=== PATIENT | female | born 1935 | race Caucasian/White ===

== ENCOUNTER → 2016-12-16 | Outpatient (CLI) | payer MEDICARE, OTHER ==
[2016-12-16 10:01] LABS: INR 1.5 (0.7-1.3); Prothrombin Time 17.7 sec (9.0-12.0)
== END | disposition home or self-care (01) ==
LOC: LAB 09:38
PROVIDERS: ATTEND Internal Medicine Cardiovascular Disease
DX: R79.1 Abnormal coagulation profile (principal)
CPT/HCPCS: 85610

== ENCOUNTER → 2017-01-27 | Outpatient (CLI) | payer MEDICARE, OTHER ==
[2017-01-27 09:36] LABS: INR 4.7 (0.7-1.3); Prothrombin Time 56.3 sec (9.0-12.0)
== END | disposition home or self-care (01) ==
LOC: LAB 09:17
PROVIDERS: ATTEND Internal Medicine Cardiovascular Disease
DX: R79.1 Abnormal coagulation profile (principal)
CPT/HCPCS: 85610

== ENCOUNTER → 2017-02-09 | Outpatient (CLI) | payer MEDICARE, OTHER ==
[2017-02-09 10:02] LABS: INR 3.2 (0.7-1.3); Prothrombin Time 38.8 sec (9.0-12.0)
== END | disposition home or self-care (01) ==
LOC: LAB 09:47
PROVIDERS: ATTEND Internal Medicine Cardiovascular Disease
DX: R79.1 Abnormal coagulation profile (principal)
CPT/HCPCS: 85610

== ENCOUNTER → 2017-02-23 | Outpatient (CLI) | payer MEDICARE, OTHER ==
[2017-02-23 16:56] LABS: INR 2.3 (0.7-1.3); Prothrombin Time 27.7 sec (9.0-12.0)
== END | disposition home or self-care (01) ==
LOC: LAB 10:18
PROVIDERS: ATTEND Internal Medicine Cardiovascular Disease
DX: R79.1 Abnormal coagulation profile (principal)
CPT/HCPCS: 85610

== ENCOUNTER → 2017-03-23 | Outpatient (CLI) | payer MEDICARE, OTHER ==
[2017-03-23 10:16] LABS: INR 2.3 (0.7-1.3); Prothrombin Time 27.1 sec (9.0-12.0)
[2017-03-24 12:23] LABS: Urine Bilirubin Negative (Negative); Urine Blood Negative /uL (Negative); Urine Color Yellow (Yellow); Urine Glucose Normal (Normal); Urine Ketone Negative (Negative); Urine Nitrite Negative (Negative); Urine Urobilinogen Normal (Negative); Urine pH 5.5 (5.0-8.0)
== END | disposition home or self-care (01) ==
LOC: LAB 09:41
PROVIDERS: ATTEND Internal Medicine Cardiovascular Disease
DX: R79.1 Abnormal coagulation profile (principal); N39.0 Urinary tract infection, site not specified
CPT/HCPCS: 81003; 85610; 87086

== ENCOUNTER → 2017-05-12 | Outpatient (CLI) | payer MEDICARE, OTHER ==
[2017-05-12 10:57] LABS: INR 1.8 (0.7-1.3); Prothrombin Time 21.2 sec (9.0-12.0)
== END | disposition home or self-care (01) ==
LOC: LAB 10:06
PROVIDERS: ATTEND Internal Medicine Cardiovascular Disease
DX: R79.1 Abnormal coagulation profile (principal)
CPT/HCPCS: 85610

== ENCOUNTER → 2017-06-02 | Outpatient (CLI) | payer MEDICARE, OTHER ==
[2017-06-02 10:08] LABS: INR 1.6 (0.7-1.3); Prothrombin Time 18.6 sec (9.0-12.0)
== END | disposition home or self-care (01) ==
LOC: LAB 09:47
PROVIDERS: ATTEND Internal Medicine Cardiovascular Disease
DX: R79.1 Abnormal coagulation profile (principal)
CPT/HCPCS: 85610

== ENCOUNTER → 2017-06-28 | Outpatient (CLI) | payer MEDICARE, OTHER ==
[2017-06-28 10:47] LABS: INR 1.4 (0.7-1.3); Prothrombin Time 17.2 sec (9.0-12.0)
== END | disposition home or self-care (01) ==
LOC: LAB 10:14
PROVIDERS: ATTEND Internal Medicine Cardiovascular Disease
DX: R79.1 Abnormal coagulation profile (principal)
CPT/HCPCS: 85610

== ENCOUNTER → 2017-08-11 | Outpatient (CLI) | payer MEDICARE, OTHER ==
[2017-08-11 10:51] LABS: INR 2.6 (0.7-1.3); Prothrombin Time 30.7 sec (9.0-12.0)
== END | disposition home or self-care (01) ==
LOC: LAB 10:27
PROVIDERS: ATTEND Internal Medicine Cardiovascular Disease
DX: R79.1 Abnormal coagulation profile (principal)
CPT/HCPCS: 85610

== ENCOUNTER → 2017-09-08 | Outpatient (CLI) | payer MEDICARE, OTHER ==
[2017-09-08 11:01] LABS: INR 0.9 (0.7-1.3); Prothrombin Time 11.2 sec (9.0-12.0)
== END | disposition home or self-care (01) ==
LOC: LAB 10:36
PROVIDERS: ATTEND Internal Medicine Cardiovascular Disease
DX: R79.1 Abnormal coagulation profile (principal)
CPT/HCPCS: 85610

== ENCOUNTER → 2017-09-28 | Outpatient (CLI) | payer MEDICARE, OTHER | END | disposition home or self-care (01) | LOC: Rad HDHVI 13:53 | PROVIDERS: ATTEND Internal Medicine Cardiovascular Disease | DX: I08.0 Rheumatic disorders of both mitral and aortic valves (principal); I10 Essential (primary) hypertension | CPT/HCPCS: 93306 ==

== ENCOUNTER → 2017-10-17 | Outpatient (CLI) | payer MEDICARE, OTHER ==
[2017-10-17 13:19] LABS: % Iron Saturation 3.4 % (15-50)
[2017-10-17 13:26] LABS: Ferritin 8.4 ng/mL (10-322)
[2017-10-17 13:27] LABS: Folate (Folic Acid) 10.29 ng/mL (5.38-24)
== END | disposition home or self-care (01) ==
LOC: LAB 08:48
PROVIDERS: ATTEND Internal Medicine Cardiovascular Disease
DX: D52.9 Folate deficiency anemia, unspecified (principal); E61.1 Iron deficiency; D51.9 Vitamin B12 deficiency anemia, unspecified; R79.89 Other specified abnormal findings of blood chemistry; R79.1 Abnormal coagulation profile
CPT/HCPCS: 82607; 82728; 82746; 83540; 83550; 85610

== ENCOUNTER → 2017-11-16 | Outpatient (CLI) | payer MEDICARE, OTHER | END | disposition home or self-care (01) | LOC: LAB 08:38 | PROVIDERS: ATTEND Internal Medicine Cardiovascular Disease | DX: R79.1 Abnormal coagulation profile (principal) | CPT/HCPCS: 85610 ==

== ENCOUNTER → 2017-12-14 | Outpatient (CLI) | payer MEDICARE, OTHER | END | disposition home or self-care (01) | LOC: LAB 09:09 | PROVIDERS: ATTEND Internal Medicine Cardiovascular Disease | DX: R79.1 Abnormal coagulation profile (principal) | CPT/HCPCS: 85610 ==

== ENCOUNTER → 2017-12-15 | Outpatient (CLI) | payer MEDICARE, OTHER | END | disposition home or self-care (01) | LOC: Rad HDHVI 13:54 | PROVIDERS: ATTEND Internal Medicine Cardiovascular Disease | DX: I34.0 Nonrheumatic mitral (valve) insufficiency (principal) | CPT/HCPCS: 93306 ==

== ENCOUNTER → 2017-12-29 | Outpatient (CLI) | payer MEDICARE, OTHER ==
[~2017-12-29] VITALS: Ht 162.6 cm; Wt 59.0 kg
== END | disposition home or self-care (01) ==
LOC: Rad HDHVI 13:32
PROVIDERS: ATTEND Internal Medicine Cardiovascular Disease
DX: S69.90XA Unspecified injury of unspecified wrist, hand and finger(s), initial encounter (principal); I10 Essential (primary) hypertension; R06.02 Shortness of breath; X58.XXXA Exposure to other specified factors, initial encounter; Y93.89 Activity, other specified; Y92.89 Other specified places as the place of occurrence of the external cause; Y99.8 Other external cause status
CPT/HCPCS: 78472; 96374; A9505; 96375

== ENCOUNTER → 2018-04-05 | Outpatient (CLI) | payer MEDICARE, BC ==
[2018-04-05 12:07] LABS: Eosinophils # (auto) 0.5 uL; Eosinophils % (auto) 14.2 % (0.0-7.0); Hemoglobin 8.7 g/dL (12.2-16.2); Mean Corpuscular Hemoglobin 25.5 pg (28.0-32.0); Monocytes # (auto) 0.3 uL; White Blood Cell 3.5 10^3/uL (4.4-10.8)
[2018-04-05 12:10] LABS: Basophils # (auto) 0.1 uL; Basophils % (auto) 1.8 % (0.0-2.0); Hematocrit 27.9 % (36.0-46.0); Lymphocytes # (auto) 0.8 uL; Lymphocytes % (auto) 21.9 % (10.0-50.0); Mean Corpuscular Hgb Conc. 31.2 g/dL (32.0-36.0); Mean Corpuscular Volume 81.9 fL (80.0-100.0); Monocytes % (auto) 7.6 % (0.0-12.0); Neutrophils # (auto) 1.9 uL; Neutrophils % (auto) 54.5 % (37.0-80.0); Platelet Count (auto) 345 10^3/uL (140-450); Red Blood Cells 3.41 10^6/uL (4.0-5.20); Red Cell Distribution Width 19.1 % (11.8-14.3)
[2018-04-05 12:11] LABS: Urine Blood TRACE /uL (Negative); Urine Specific Gravity 1.009 (1.001-1.035)
[2018-04-05 12:29] LABS: Albumin 3.6 g/dL (3.4-5.0); BUN/Creatinine Ratio 22.9; Bilirubin, Total 0.3 mg/dL (0.2-1.0); Calcium 8.6 mg/dL (8.5-10.1); Potassium 4.6 mmol/L (3.5-5.1); Total Protein 6.1 g/dL (6.4-8.2)
[2018-04-05 12:30] LABS: Free T4 (Free Thyroxine) 1.35 ng/dL (0.89-1.76)
== END | disposition home or self-care (01) ==
LOC: LAB 08:32
PROVIDERS: ATTEND Internal Medicine Cardiovascular Disease
DX: Z00.01 Encounter for general adult medical examination with abnormal findings (principal); E03.9 Hypothyroidism, unspecified; E55.9 Vitamin D deficiency, unspecified; E11.9 Type 2 diabetes mellitus without complications; D51.9 Vitamin B12 deficiency anemia, unspecified; N39.0 Urinary tract infection, site not specified; I10 Essential (primary) hypertension; E78.00 Pure hypercholesterolemia, unspecified
CPT/HCPCS: 36415; 80053; 80061; 81003; 82306; 82607; 83036; 84439; 84443; 85025

== ENCOUNTER → 2018-07-24 | Outpatient (CLI) | payer MEDICARE, BC ==
[~2018-07-24] MED LIST: IOHEXOL 350 MG/ML 100ML IJ ONE
[2018-07-24 12:20] VITALS: BP 152/91
[2018-07-24 13:00] VITALS: BP 157/70
== END | disposition home or self-care (01) ==
LOC: Rad HDHVI 12:07
PROVIDERS: ATTEND Internal Medicine Cardiovascular Disease
DX: S22.089A Unspecified fracture of T11-T12 vertebra, initial encounter for closed fracture (principal); M51.26 Other intervertebral disc displacement, lumbar region; M48.061 Spinal stenosis, lumbar region without neurogenic claudication; K44.9 Diaphragmatic hernia without obstruction or gangrene; I70.0 Atherosclerosis of aorta; I51.7 Cardiomegaly; X58.XXXA Exposure to other specified factors, initial encounter; Y93.89 Activity, other specified; Y92.89 Other specified places as the place of occurrence of the external cause; Y99.8 Other external cause status
CPT/HCPCS: 71260; 72131; 82565; G0463; Q9967

== ENCOUNTER → 2018-08-22 | Outpatient (CLI) | payer MEDICARE, BC ==
[2018-08-22 12:25] LABS: Urine Blood Negative /uL (Negative); Urine Specific Gravity 1.015 (1.001-1.035)
== END | disposition home or self-care (01) ==
LOC: LAB 08:21
PROVIDERS: ATTEND Internal Medicine Cardiovascular Disease
DX: N39.0 Urinary tract infection, site not specified (principal)
CPT/HCPCS: 81003; 87086

== ENCOUNTER → 2018-08-24 | Outpatient (CLI) | payer MEDICARE, BC ==
[~2018-08-24] MED LIST changes: +CYANOCOBALAMIN (B-12) 1000 MCG/1 ML VIAL ONE; -IOHEXOL 350 MG/ML 100ML IJ ONE
[2018-08-24 12:30] VITALS: BP 143/51
[2018-08-24] MEDS: CYANOCOBALAMIN (B-12) 1000 MCG/1 ML VIAL IM ONE (12:50)
[2018-08-24 12:51] VITALS: BP 138/56
[2018-08-24 17:02] LABS: Basophils # (auto) 0 uL; Eosinophils # (auto) 0.4 uL; Monocytes # (auto) 0.3 uL; Neutrophils # (auto) 2.8 uL
[2018-08-24 17:03] LABS: Basophils % (auto) 1.1 % (0.0-2.0); Hematocrit 26.3 % (36.0-46.0); Hemoglobin 8.3 g/dL (12.2-16.2); Lymphocytes # (auto) 0.8 uL; Lymphocytes % (auto) 18.3 % (10.0-50.0); Mean Corpuscular Hemoglobin 26.7 pg (28.0-32.0); Mean Corpuscular Hgb Conc. 31.5 g/dL (32.0-36.0); Mean Corpuscular Volume 84.9 fL (80.0-100.0); Monocytes % (auto) 6.8 % (0.0-12.0); Neutrophils % (auto) 63.8 % (37.0-80.0); Nucleated Red Blood Cells % 0.3 %; Platelet Count (auto) 367 10^3/uL (140-450); Red Cell Distribution Width 16.2 % (11.8-14.3); White Blood Cell 4.3 10^3/uL (4.4-10.8)
[2018-08-24 17:06] LABS: Albumin 3.2 g/dL (3.4-5.0); BUN/Creatinine Ratio 21.8; Calcium 7.8 mg/dL (8.5-10.1); Potassium 4.6 mmol/L (3.5-5.1)
[2018-08-24 17:08] LABS: Bilirubin, Total 0.2 mg/dL (0.2-1.0); Total Protein 5.7 g/dL (6.4-8.2)
== END | disposition home or self-care (01) ==
LOC: CHF HDHVI 12:05
PROVIDERS: ATTEND Internal Medicine Cardiovascular Disease
DX: D51.9 Vitamin B12 deficiency anemia, unspecified (principal); E55.9 Vitamin D deficiency, unspecified; E03.9 Hypothyroidism, unspecified; I10 Essential (primary) hypertension; E11.9 Type 2 diabetes mellitus without complications; R53.81 Other malaise; R53.83 Other fatigue; R53.1 Weakness; I70.0 Atherosclerosis of aorta; E78.00 Pure hypercholesterolemia, unspecified; I48.91 Unspecified atrial fibrillation; Z95.0 Presence of cardiac pacemaker
CPT/HCPCS: 36415; 80053; 82306; 82607; 83036; 84443; 85025; 96372; G0463; J3420

== ENCOUNTER 2018-08-29 06:36 | Day surgery (SDC) | payer MEDICARE, BC ==
[2018-08-29 07:58] VITALS: BP 158/80
[2018-08-29 08:10] VITALS: BP 164/75
[2018-08-29 08:47] VITALS: BP 154/73
[2018-08-29 10:35] VITALS: BP 139/67
== END 2018-08-29 11:20 | disposition home or self-care (01) ==
LOC: CATH 06:36
PROVIDERS: ATTEND Internal Medicine Cardiovascular Disease
DX: D64.9 Anemia, unspecified (principal); I49.5 Sick sinus syndrome; I10 Essential (primary) hypertension; Z81.0 Family history of intellectual disabilities; Z88.2 Allergy status to sulfonamides; Z88.1 Allergy status to other antibiotic agents
CPT/HCPCS: 36430; 86850; 86900; 86901; 86920; J7040; P9016

== ENCOUNTER → 2018-09-04 | Outpatient (CLI) | payer MEDICARE, BC ==
[2018-09-05 12:12] LABS: Basophils # (auto) 0 uL; Eosinophils # (auto) 0.6 uL; Hemoglobin 9.9 g/dL (12.2-16.2); Monocytes # (auto) 0.5 uL; Nucleated Red Blood Cells % 0.1 %
[2018-09-05 12:16] LABS: Basophils % (auto) 0.5 % (0.0-2.0); Eosinophils % (auto) 13.5 % (0.0-7.0); Hematocrit 32.2 % (36.0-46.0); Mean Corpuscular Hemoglobin 26.3 pg (28.0-32.0); Mean Corpuscular Hgb Conc. 30.8 g/dL (32.0-36.0); Mean Corpuscular Volume 85.2 fL (80.0-100.0); Monocytes % (auto) 12.2 % (0.0-12.0); Neutrophils # (auto) 2.1 uL; Neutrophils % (auto) 50.8 % (37.0-80.0); Platelet Count (auto) 324 10^3/uL (140-450); Red Blood Cells 3.78 10^6/uL (4.0-5.20); Red Cell Distribution Width 16.6 % (11.8-14.3); White Blood Cell 4.2 10^3/uL (4.4-10.8)
== END | disposition home or self-care (01) ==
LOC: Rad HDHVI 16:08
PROVIDERS: ATTEND Internal Medicine Cardiovascular Disease
DX: K44.9 Diaphragmatic hernia without obstruction or gangrene (principal); M41.85 Other forms of scoliosis, thoracolumbar region; M43.8X5 Other specified deforming dorsopathies, thoracolumbar region; I70.8 Atherosclerosis of other arteries; D64.9 Anemia, unspecified
CPT/HCPCS: 36415; 74176; 85025

== ENCOUNTER → 2018-09-25 | Outpatient (CLI) | payer MEDICARE, BC ==
[2018-09-25 16:02] LABS: Basophils # (auto) 0 uL; Eosinophils # (auto) 0.2 uL; Hemoglobin 10.1 g/dL (12.2-16.2); Lymphocytes # (auto) 0.5 uL; Monocytes # (auto) 0.3 uL; White Blood Cell 4.1 10^3/uL (4.4-10.8)
[2018-09-25 16:06] LABS: Basophils % (auto) 0.7 % (0.0-2.0); Eosinophils % (auto) 6.1 % (0.0-7.0); Hematocrit 31.8 % (36.0-46.0); Lymphocytes % (auto) 11.6 % (10.0-50.0); Mean Corpuscular Hgb Conc. 31.6 g/dL (32.0-36.0); Mean Corpuscular Volume 85.3 fL (80.0-100.0); Monocytes % (auto) 7.6 % (0.0-12.0); Nucleated Red Blood Cells % 0.2 %; Platelet Count (auto) 238 10^3/uL (140-450); Red Blood Cells 3.73 10^6/uL (4.0-5.20); Red Cell Distribution Width 17.6 % (11.8-14.3)
[2018-09-25 16:09] LABS: BUN/Creatinine Ratio 25.5; Calcium 8.6 mg/dL (8.5-10.1); Potassium 4.3 mmol/L (3.5-5.1)
[2018-09-25 16:41] LABS: INR 1.28 (0.9-1.15); Partial Thromboplastin Time 32.5 sec (23.78-33.04); Prothrombin Time 13.5 sec (9.27-12.13)
== END | disposition home or self-care (01) ==
LOC: Rad HDHVI 11:56
PROVIDERS: ATTEND Internal Medicine Cardiovascular Disease
DX: I11.9 Hypertensive heart disease without heart failure (principal); R79.89 Other specified abnormal findings of blood chemistry; D64.9 Anemia, unspecified; R79.1 Abnormal coagulation profile; M40.295 Other kyphosis, thoracolumbar region; I70.0 Atherosclerosis of aorta; M85.80 Other specified disorders of bone density and structure, unspecified site
CPT/HCPCS: 36415; 71046; 80048; 82728; 85025; 85610; 85730

== ENCOUNTER 2018-10-03 23:56 | Inpatient (IN) | payer MEDICARE, BC ==
[~2018-10-03] VITALS: Ht 160 cm; Wt 55.0 kg
[2018-10-04] MEDS ORDERED: SODIUM CHLORIDE 0.9% 1,000 ML IVB ONE (01:22)
[2018-10-04 02:28] LABS: Urine Bacteria FEW /hpf (None Seen); Urine Blood Negative /uL (Negative); Urine Mucus FEW (None Seen); Urine Specific Gravity 1.016 (1.001-1.035); Urine WBC 4 /hpf (0 - 5)
[2018-10-04 02:33] LABS: Hemoglobin 9.2 g/dL (12.2-16.2); Lymphocytes # (auto) 0.7 uL
[2018-10-04 02:35] LABS: Alcohol, Urine < 3.0 mg/dL (0-5); Amphetamine Screen, Urine NEGATIVE (NEGATIVE); Barbiturate Scree,Urine NEGATIVE (NEGATIVE); Benzodiazephine Screen, Urine NEGATIVE (NEGATIVE); Cannabinoid Screen, Urine NEGATIVE (NEGATIVE); Cocaine Screen, Urine NEGATIVE (NEGATIVE); Opiate Scree,Urine NEGATIVE (NEGATIVE); Phencyclidine Screen, Urine NEGATIVE (NEGATIVE)
[2018-10-04 02:35] LABS: Basophils # (auto) 0.1 uL; Basophils % (auto) 1.1 % (0.0-2.0); Eosinophils # (auto) 0.5 uL; Eosinophils % (auto) 9.4 % (0.0-7.0); Hematocrit 29.3 % (36.0-46.0); Lymphocytes % (auto) 12.8 % (10.0-50.0); Mean Corpuscular Hemoglobin 26.3 pg (28.0-32.0); Mean Corpuscular Hgb Conc. 31.4 g/dL (32.0-36.0); Mean Corpuscular Volume 83.9 fL (80.0-100.0); Monocytes # (auto) 0.5 uL; Monocytes % (auto) 10.1 % (0.0-12.0); Neutrophils # (auto) 3.4 uL; Neutrophils % (auto) 66.6 % (37.0-80.0); Platelet Count (auto) 270 10^3/uL (140-450); Red Blood Cells 3.49 10^6/uL (4.0-5.20); Red Cell Distribution Width 16.6 % (11.8-14.3); White Blood Cell 5.1 10^3/uL (4.4-10.8)
[2018-10-04 02:42] LABS: Alanine Aminotransferase 12 U/L (13-56); Anion Gap 4 (5-15); Blood Urea Nitrogen 20 mg/dL (7-18); Calcium 8.2 mg/dL (8.5-10.1); Carbon Dioxide 26 mmol/L (21-32); Chloride 113 mmol/L (98-107); GFR African American 88 mL/min; GFR Non-African American 73 mL/min; Glucose 89 mg/dL (74-106); Magnesium 2.3 mg/dL (1.6-2.6); Potassium 4.5 mmol/L (3.5-5.1); Sodium 143 mmol/L (136-145)
[2018-10-04 02:43] LABS: INR 1.95 (0.9-1.15); Partial Thromboplastin Time 23.4 sec (23.78-33.04); Prothrombin Time 20.1 sec (9.27-12.13)
[2018-10-04] MEDS ORDERED: cefTRIAXone 1GM/50ML D5W 50 ML IV ONE (02:45)
[2018-10-04] MEDS ORDERED: SODIUM CHLORIDE 0.9% 1,000 ML IV ONE (02:45)
[2018-10-04 02:47] LABS: Alkaline Phosphatase 90 U/L (45-117); Aspartate Aminotransferase 10 U/L (15-37); Bilirubin, Total 0.1 mg/dL (0.2-1.0); Total Protein 5.7 g/dL (6.4-8.2)
[2018-10-04] MEDS ORDERED: ONDANSETRON HCL 4 MG/2 ML VIAL IV PRN (06:00)
[2018-10-04] MEDS ORDERED: IOHEXOL 350 MG/ML 100ML IJ ONE (06:22)
[2018-10-04] MEDS ORDERED: FUROSEMIDE 20 MG/2 ML VIAL IV ONE (07:15)
[2018-10-04] MEDS: cefTRIAXone 1GM/50ML D5W 50 ML IV SCH (09:12)
--- NOTE | 2018-10-04 09:53 | NUR ---
Telemetry admit from ER ADRIANA YOUNG admitted to Telemetry unit after SBAR received from hilda. Patient oriented to Meño Brice, primary RN, unit, room, bed, and unit policies regarding patient care and visiting hours. Patient now on continuous telemetry monitoring, tele box # [id number] and telemetry reading on arrival to unit is Paced. Patient weighed by bedscale and encouraged to call if they need something. All questions and concerns addressed, patient verbalized understanding.
[2018-10-04] MEDS ORDERED: AZITHROMYCIN 500MG/ 250ML 250 ML IV SCH (10:00)
[2018-10-04] MEDS ORDERED: ENOXAPARIN SOD 100 MG/1 ML SYRINGE SC SCH (10:00)
[2018-10-04 10:45] VITALS: BP 129/70
[2018-10-04 12:18] VITALS: BP 129/70
[2018-10-04 13:00] VITALS: BP 127/70
[2018-10-04 17:00] VITALS: BP 118/67
[2018-10-04] MEDS: FUROSEMIDE 20 MG/2 ML VIAL IV SCH (17:42)
[2018-10-04] MEDS: FERROUS SULFATE 325 MG TAB PO SCH (17:42)
[2018-10-04] MEDS: ACETAMINOPHEN 500 MG TAB PO PRN (17:44)
[2018-10-04] MEDS: RIVAROXABAN 15 MG TAB PO SCH (18:16)
--- NOTE | 2018-10-04 19:00 | NUR ---
ASSUMED PATIENT CARE- NOC SHIFT PATIENT IS ALERT AND ORIENTED X4, ANSWERS IN COMPLETE SENTENCES AND MAKES APPROPRIATE EYE CONTACT. PATIENT IS ON ROOM AIR, BREATHING EVENLY, NO SIGN OF SOB. PATIENT STATES THAT SHE FEELS WEAKNESS ALL OVER HER BODY AND THAT IT IS DIFFICULT FOR HER TO GET COMFORTABLE. PATIENT IS IN BED, BED IS LOCKED IN LOWEST POSITION. BED RAILS UP X2 AND HEAD OF BED IS UP 3O DEGREES FOR SAFETY PRECAUTIONS. BEDSIDE TABLE IS WITHIN REACH, CALL LIGHT WITHIN REACH. DISCUSSED POC WITH PATIENT AND INSTRUCTED PATIENT TO CALL PRN; PATIENT VERBALIZED UNDERSTANDING. WILL CONTINUE TO MONITOR Q1H AND PRN.
[2018-10-04 20:00] VITALS: BP 102/53
[2018-10-04 22:00] VITALS: BP 102/53
[2018-10-04] MEDS ORDERED: ENOXAPARIN SOD 60 MG/0.6 ML SYRINGE SC SCH (22:00)
[2018-10-05] MEDS: ACETAMINOPHEN 500 MG TAB PO PRN (04:27)
[2018-10-05 05:00] VITALS: BP 123/50
[2018-10-05] MEDS: FUROSEMIDE 20 MG/2 ML VIAL IV SCH ×2 (05:58→18:00)
[2018-10-05 05:59] VITALS: BP 123/60
--- NOTE | 2018-10-05 07:00 | NUR ---
Opening Shift Note Assumed care of patient, awake, alert, and oriented x4. No S/S of distress/SOB or pain. IV in left forearm 18 gauge asymptomatic, intact, patent, and saline locked. Bed locked and in lowest position and call light is within reach. Instructed on POC and to call for assist PRN, and patient verbalized understanding. Will continue to monitor for changes Q1hr and PRN.
[2018-10-05 07:01] LABS: Basophils # (auto) 0 uL; Basophils % (auto) 0.5 % (0.0-2.0); Eosinophils # (auto) 0.4 uL; Eosinophils % (auto) 9.6 % (0.0-7.0); Hematocrit 27.1 % (36.0-46.0); Hemoglobin 8.8 g/dL (12.2-16.2); Lymphocytes # (auto) 0.5 uL; Lymphocytes % (auto) 11.3 % (10.0-50.0); Mean Corpuscular Hemoglobin 27.1 pg (28.0-32.0); Mean Corpuscular Hgb Conc. 32.5 g/dL (32.0-36.0); Mean Corpuscular Volume 83.4 fL (80.0-100.0); Monocytes # (auto) 0.5 uL; Monocytes % (auto) 11.8 % (0.0-12.0); Neutrophils # (auto) 2.7 uL; Neutrophils % (auto) 66.8 % (37.0-80.0); Platelet Count (auto) 307 10^3/uL (140-450); Red Blood Cells 3.25 10^6/uL (4.0-5.20); Red Cell Distribution Width 16.6 % (11.8-14.3); White Blood Cell 4.1 10^3/uL (4.4-10.8)
[2018-10-05 07:29] LABS: Calcium 8.1 mg/dL (8.5-10.1); Potassium 3.7 mmol/L (3.5-5.1)
[2018-10-05 07:31] LABS: BUN/Creatinine Ratio 24.7
[2018-10-05] MEDS: FERROUS SULFATE 325 MG TAB PO SCH ×2 (08:34→18:38)
[2018-10-05] MEDS: RIVAROXABAN 15 MG TAB PO SCH ×2 (08:35→18:37)
[2018-10-05] MEDS: cefTRIAXone 1GM/50ML D5W 50 ML IV SCH (08:35)
[2018-10-05 08:37] VITALS: BP 109/59
[2018-10-05] MEDS: CLOPIDOGREL BISULFATE 75 MG TAB PO SCH (10:35)
--- NOTE | 2018-10-05 11:00 | NUR ---
IV removal IV DC'd with sterile technique, catheter fully intact. Pressure dressing applied to site. Patient tolerated procedure well.
--- NOTE | 2018-10-05 16:30 | NUR ---
DR. BARAHNOA AT BEDSIDE
[2018-10-05 16:58] VITALS: BP 102/66
--- NOTE | 2018-10-05 17:00 | NUR ---
IV insertion IV access obtained, via clean sterile technique by inserting 22 gauge catheter at RIGHT FOREARM after 1 attempt. IV secured properly. No trauma to site. Patient tolerated procedure well.
--- NOTE | 2018-10-05 19:05 | NUR ---
ASSUMED PATIENT CARE- NOC SHIFT PATIENT IS ALERT AND ORIENTED, ANSWERS IN COMPLETE SENTENCES AND MAKES APPROPRIATE EYE CONTACT. PATIENT IS IN BED, BED IS LOCKED IN LOWEST POSITION, BED RAILS UP X2, HEAD OF BED IS UP 30 DEGREES FOR SAFETY PRECAUTIONS. BEDSIDE TABLE WITHIN REACH, CALL LIGHT WITHIN REACH. DISCUSSED POC WITH PATIENT AND INSTRUCTED PATIENT TO CALL PRN; PATIENT VERBALIZED UNDERSTANDING. WILL CONTINUE TO MONITOR Q1H AND PRN.
[2018-10-05 20:05] VITALS: BP 115/63
[2018-10-05 21:52] VITALS: BP 115/63
[2018-10-06 05:03] VITALS: BP 87/41
[2018-10-06] MEDS: FUROSEMIDE 20 MG/2 ML VIAL IV SCH (06:00)
--- NOTE | 2018-10-06 06:06 | NUR ---
BP 87/[address] TAFOYA, AWAITING ORDERS 0600 10/06/18 LASIX ORDER NOT ADMINISTERED.
--- NOTE | 2018-10-06 07:00 | NUR ---
Opening Shift Note Assumed care of patient, awake and alert. No S/S of distress/SOB or pain. Instructed on POC and to call for assist PRN, will continue to monitor for changes Q1hr and PRN.
--- NOTE | 2018-10-06 07:00 | NUR ---
DR TAFOYA ORDERED TO [facility]
[2018-10-06] MEDS: FERROUS SULFATE 325 MG TAB PO SCH ×2 (08:13→18:13)
[2018-10-06] MEDS: RIVAROXABAN 15 MG TAB PO SCH ×2 (08:13→18:13)
[2018-10-06] MEDS: cefTRIAXone 1GM/50ML D5W 50 ML IV SCH (08:13)
[2018-10-06 08:28] VITALS: BP 120/52
[2018-10-06] MEDS: CLOPIDOGREL BISULFATE 75 MG TAB PO SCH (12:15)
[2018-10-06 13:00] VITALS: BP 106/67
--- NOTE | 2018-10-06 13:04 | NUR ---
SNF PLACEMENT DR. GODOY AT BEDSIDE DISCUSSING HOME HEALTH OPTION WITH PATIENT. PATIENT IS ALREADY RECEIVING HOME HEALTH WITH PT. BUT PATIENT IS UNABLE TO GET TO BATHROOM AND WOULD PREFER GOING TO A HALFWAY.
[2018-10-06 17:05] VITALS: BP 126/72
--- NOTE | 2018-10-06 17:33 | NUR ---
assessment Per consult patient wants to go to SNF will dc tomorrow 10/07/18. Patient agrees to SNF placement. MD order has been sent to [facility]. Per Catrina at [facility] patient will go to room 6A and Dr Leyva is the accepting MD. Call Catrina at [phone] for transportation once discharged. Addendum: 10/06/18 at 1735 by Leila Potts Amended: Links added.
[2018-10-06 20:00] VITALS: BP 98/56
[2018-10-06 22:00] VITALS: BP 98/56
[2018-10-07 05:00] VITALS: BP 119/54
--- NOTE | 2018-10-07 07:50 | NUR ---
total linen change done.
[2018-10-07 08:30] VITALS: BP 121/72
[2018-10-07] MEDS: cefTRIAXone 1GM/50ML D5W 50 ML IV SCH (08:58)
[2018-10-07] MEDS: FERROUS SULFATE 325 MG TAB PO SCH ×2 (08:58→18:14)
[2018-10-07] MEDS: RIVAROXABAN 15 MG TAB PO SCH ×2 (08:58→18:14)
[2018-10-07 09:00] VITALS: BP 121/72
--- NOTE | 2018-10-07 10:42 | NUR ---
md sherrie bender at bedside, clarified re: the order that was placed by md feng on transfer of service to his name since 10/05/18. Addendum: 10/07/18 at 1105 by Sukhwinder Lozano RN RN as per md bender he will inform md daniel resendiz that and let md feng know re: the bed availability at [facility]. informed md bender that as per patient she spoke with md feng yesterday and he will keep the patient through the weekend.
[2018-10-07 13:00] VITALS: BP 112/64
--- NOTE | 2018-10-07 15:45 | NUR ---
daughter at bedside, both daughter and patient verbaLIZING THAT THEY DON'T WANT THE PATIENT TO BE PLACE ON SNF AND PREFERRED HOME HEALTH SERVICES INSTEAD. WILL LET KNOW
[2018-10-07] MEDS: CLOPIDOGREL BISULFATE 75 MG TAB PO SCH (16:11)
[2018-10-07 16:58] VITALS: BP 116/65
--- NOTE | 2018-10-07 20:00 | NUR ---
OPENING NOTE RECEIVED REPORT FROM DAYSHIFT RN. ASSUMING ROLE OF CARE OF PATIENT AT THIS TIME. PATIENT SHOWING NO SIGN OF DISTRESS, SHORTNESS OF BREATH, AND PATIENT DENIES ANY PAIN AT THIS TIME. PATIENT EDUCATED ON PLAN OF CARE FOR THE NIGHT AND PATIENT VERBALIZED UNDERSTANDING. BED LOWERED, CALL LIGHT WITHIN REACH AND PATIENT WILL BE ROUNDED ON EVERY HOUR AND NEEDED.
[2018-10-07 22:00] VITALS: BP 99/51
[2018-10-08 05:33] VITALS: BP 115/53
[2018-10-08 08:30] VITALS: BP 124/61
[2018-10-08] MEDS: cefTRIAXone 1GM/50ML D5W 50 ML IV SCH (08:41)
[2018-10-08] MEDS: ACETAMINOPHEN 500 MG TAB PO PRN (08:42)
[2018-10-08] MEDS: RIVAROXABAN 15 MG TAB PO SCH ×2 (08:42→18:38)
[2018-10-08] MEDS: FERROUS SULFATE 325 MG TAB PO SCH ×2 (08:42→18:38)
--- NOTE | 2018-10-08 08:48 | NUR ---
PT WITH PATIENT AT THIS TIME, WILL MONITOR INCREASE IN ACTIVITY LEVEL.
[2018-10-08 09:00] VITALS: BP 124/61
[2018-10-08] MEDS: CLOPIDOGREL BISULFATE 75 MG TAB PO SCH (11:50)
--- NOTE | 2018-10-08 12:01 | NUR ---
Nutrition Assessment Notes please see attached link for complete assessment Est. Needs BW [id number]-[id number] (25-30 kcal/kgBW), 56-67gms pro (1.0-1.2 gms/kgBW). Will continue to monitor pertinent labs and reassess nutrient need prn Addendum: 10/08/18 at [address] Amended: Links added.
--- NOTE | 2018-10-08 16:06 | NUR ---
spoke with md feng, informed him that as per patient and family, they don't want to go to snf and preferred home health service for safety evaluation, physical therapy, v/s and medication management instead. as per md feng he did already place the patient on home health under [facility]. will call social service for the consult
--- NOTE | 2018-10-08 16:48 | NUR ---
PAGED MEDICAL WRITER SOCIAL SERVICE FOR THE CONSULT AND DC PLANNING FOR TOMORROW
--- NOTE | 2018-10-08 16:56 | NUR ---
MELVIN ENVIRONMENTAL COMPLIANCE OFFICER CALLED BACK AND INFORMED HER THAT THE PATIENT AND FAMILY DOES NOT WANT TO GO TO SNF AND MD TAFOYA IS AWARE AND THERE IS A NEW SOCIAL SERVICE CONSULT PLACED FOR HOME HEALTH AND DC PLANNING FOR TOMORROW. PER MELVIN SHE WILL TAKE CARE OF IT TOMORROW.
[2018-10-08 17:53] VITALS: BP 132/77
--- NOTE | 2018-10-08 18:07 | NUR ---
SPOKE WITH PATIENT AND DAUGHTER AND THE PATIENT DID CHANGE HER MIND, SHE WANTED TO GO TO [facility] IF SHE WILL BE DISCHARGE TOMORROW. WILL ENDORSE.
--- NOTE | 2018-10-08 19:57 | NUR ---
OPENING NOTE RECEIVED REPORT FROM DAYSHIFT RN. ASSUMING ROLE OF CARE OF PATIENT AT THIS TIME. PATIENT SHOWING NO SIGN OF DISTRESS, SHORTNESS OF BREATH AND PATIENT DENIES ANY PAIN AT THIS TIME. PATIENT EDUCATED ON PLAN OF CARE FOR THE NIGHT AND PATIENT VERBALIZE UNDERSTANDING. DISCUSSED WITH PATIENT PLANS FOR DISCHARGE TOMORROW AND PATIENT IS STATING UNCERTAINTY REGARDING DISCHARGE AND LOCATION. PATIENT STATES SHE WOULD LIKE TO SPEAK TO THE PICKLE PROCESSOR REGARDING HER CHOICES. PICKLE PROCESSOR MADE AWARE ON DAYSHIFT ON CHANGES TO LOCATIONS AND STATED WILL WORK ON IT TOMORROW. WILL ENDORSE TO DAYSHIFT AND WILL ATTEMPT TO CONTACT IN THE MORNING. BED LOWERED, CALL LIGHT WITHIN REACH, AND PATIENT WILL BE ROUNDED ON EVERY HOUR AND NEEDED.
[2018-10-08 22:00] VITALS: BP 90/45
[2018-10-09 04:52] VITALS: BP 112/58
[2018-10-09] MEDS: ACETAMINOPHEN 500 MG TAB PO PRN (05:24)
[2018-10-09] MEDS: RIVAROXABAN 15 MG TAB PO SCH ×2 (08:19→18:00)
[2018-10-09] MEDS: CLOPIDOGREL BISULFATE 75 MG TAB PO SCH (08:19)
[2018-10-09] MEDS: FERROUS SULFATE 325 MG TAB PO SCH ×2 (08:19→18:00)
[2018-10-09] MEDS: cefTRIAXone 1GM/50ML D5W 50 ML IV SCH (08:20)
[2018-10-09 08:50] VITALS: BP 109/56
[2018-10-09 13:00] VITALS: BP 111/64
--- NOTE | 2018-10-09 15:41 | NUR ---
re-assessment Patient is now discharged. Per Catrina at [facility] patient will still go to room 6A and Dr Leyva is the accepting. General transport will transport patient between 5pm and 530pm. Patient agrees to discharge plan to SNF. Whitley RUIZ has been notified. Addendum: 10/09/18 at 1543 by Leila GANDARA Amended: Links added.
[2018-10-09] MEDS ORDERED: POTA1TAB61 PO (16:32)
[2018-10-09] MEDS ORDERED: PARO7.5C2 PO (16:32)
[2018-10-09] MEDS ORDERED: CYA100I IM (16:32)
[2018-10-09] MEDS ORDERED: ACET-1156 PO (16:32)
[2018-10-09] MEDS ORDERED: FERR1TAB5 PO (16:32)
[2018-10-09] MEDS ORDERED: LEVO100T8 PO (16:32)
[2018-10-09] MEDS ORDERED: WARF2TAB55 PO (16:32)
[2018-10-09] MEDS ORDERED: LORA-622 PO (16:32)
[2018-10-09 16:43] VITALS: BP 111/64
[2018-10-09 17:11] VITALS: BP 121/69
--- NOTE | 2018-10-09 17:30 | NUR ---
Discharge instructions given as ordered. All questions and concerns addressed. Patient verbalized understanding. Medication reconciliation form completed and copy given to patient. Transport here for patient however, she is not finished reading discharge materials and will sign papers after she reading. Transport will return for her.
--- NOTE | 2018-10-09 19:30 | NUR ---
Transport arrived for the patient, via w/c with all personal belongings. All questions and concerns are addressed. Telemetry unit returned to ICU. No distress noted at time of departure.
== END 2018-10-09 19:30 | DRG 175 ==
LOC: EDBD 23:56 → ER 23:58 → TELE 10-04 05:47 → TELE-WESTW 10-04 10:12
PROVIDERS: ADMIT Nurse Practitioner Family; ATTEND Internal Medicine Cardiovascular Disease
DX: I26.99 Other pulmonary embolism without acute cor pulmonale (principal); G93.41 Metabolic encephalopathy; J18.1 Lobar pneumonia, unspecified organism; R64 Cachexia; E44.1 Mild protein-calorie malnutrition; J98.11 Atelectasis; N13.6 Pyonephrosis; G62.9 Polyneuropathy, unspecified; E03.9 Hypothyroidism, unspecified; I95.9 Hypotension, unspecified; I11.0 Hypertensive heart disease with heart failure; Z87.81 Personal history of (healed) traumatic fracture; Z95.0 Presence of cardiac pacemaker; I49.5 Sick sinus syndrome; Z68.21 Body mass index [BMI] 21.0-21.9, adult; D64.9 Anemia, unspecified; R62.7 Adult failure to thrive
CPT/HCPCS: 36415; 70450; 71045; 71275; 80048; 80053; 80307; 81001; 83605; 83735; 83880; 84443; 84484; 85025; 85379; 85610; 85730; 87040; 87086; 93005; 93970; 94761; 96361; 96365; 96372; 96375; 97110; 97116; 97163; 97530; G0378; J0696

== ENCOUNTER → 2019-01-26 | Outpatient (CLI) | payer MEDICARE, BC ==
[~2019-01-26] MED LIST changes: +ACET-1156 PO; +CYA100I IM; -CYANOCOBALAMIN (B-12) 1000 MCG/1 ML VIAL ONE; +FERR1TAB5 PO; +LEVO100T8 PO; +LORA-622 PO; +PARO7.5C2 PO; +POTA1TAB61 PO; +WARF2TAB55 PO
[2019-01-26 15:52] LABS: Urine Blood Negative /uL (Negative); Urine Specific Gravity 1.033 (1.001-1.035)
[2019-01-26 15:56] LABS: Basophils # (auto) 0 uL; Basophils % (auto) 0.5 % (0.0-2.0); Eosinophils # (auto) 0.2 uL; Eosinophils % (auto) 5.7 % (0.0-7.0); Hematocrit 30.7 % (36.0-46.0); Hemoglobin 9.8 g/dL (12.2-16.2); Lymphocytes # (auto) 0.8 uL; Lymphocytes % (auto) 18.5 % (10.0-50.0); Mean Corpuscular Hemoglobin 29.7 pg (28.0-32.0); Mean Corpuscular Hgb Conc. 31.8 g/dL (32.0-36.0); Mean Corpuscular Volume 93.4 fL (80.0-100.0); Monocytes # (auto) 0.4 uL; Monocytes % (auto) 9.1 % (0.0-12.0); Neutrophils # (auto) 2.7 uL; Neutrophils % (auto) 66.2 % (37.0-80.0); Nucleated Red Blood Cells % 0.1 %; Platelet Count (auto) 271 10^3/uL (140-450); Red Blood Cells 3.29 10^6/uL (4.0-5.20); Red Cell Distribution Width 14.7 % (11.8-14.3); White Blood Cell 4.1 10^3/uL (4.4-10.8)
[2019-01-26 16:04] LABS: Albumin 3.7 g/dL (3.4-5.0); Calcium 8.7 mg/dL (8.5-10.1); Potassium 4.7 mmol/L (3.5-5.1)
[2019-01-26 16:08] LABS: BUN/Creatinine Ratio 31.4; Bilirubin, Total 0.3 mg/dL (0.2-1.0)
== END | disposition home or self-care (01) ==
LOC: LAB 12:00
PROVIDERS: ATTEND Internal Medicine Cardiovascular Disease
DX: N39.0 Urinary tract infection, site not specified (principal); D64.9 Anemia, unspecified; I11.0 Hypertensive heart disease with heart failure; I50.9 Heart failure, unspecified
CPT/HCPCS: 36415; 80053; 81003; 85025

== ENCOUNTER → 2019-03-26 | Outpatient (CLI) | payer MEDICARE, BC | END | disposition home or self-care (01) | LOC: LAB 15:20 | PROVIDERS: ATTEND Internal Medicine Cardiovascular Disease | DX: R79.1 Abnormal coagulation profile (principal) | CPT/HCPCS: 85610 ==